=== PATIENT | male | born 1955 | race Caucasian/White ===

== ENCOUNTER → 2019-08-22 | Outpatient (REF) | payer MEDICARE ==
[2019-08-23 17:16] LABS: CREATININE,RANDOM URINE 59.3 MG/DL; MAGNESIUM URINE RANDOM 4.8 MG/DL
== END ==
LOC: M LAB REF 16:28
PROVIDERS: ATTEND Nurse Practitioner Family
DX: E83.42 Hypomagnesemia (principal); N18.2 Chronic kidney disease, stage 2 (mild)

== ENCOUNTER 2020-06-14 21:48 | Emergency (ER) | payer MEDICARE ==
[~2020-06-14] VITALS: Ht 180.3 cm; Wt 150.0 kg
[2020-06-14] MEDS ORDERED: CALC1CAP31 (22:15)
[2020-06-14] MEDS ORDERED: SPIR50TA4 (22:15)
[2020-06-14] MEDS ORDERED: ZYLO300T6 (22:15)
[2020-06-14] MEDS ORDERED: THEO400T4 (22:15)
[2020-06-14] MEDS ORDERED: NOVO70VL (22:15)
[2020-06-14] MEDS ORDERED: VITA1CAP25 (22:15)
[2020-06-14] MEDS ORDERED: GABA-282 (22:15)
[2020-06-14] MEDS ORDERED: METF10004 (22:15)
[2020-06-14] MEDS ORDERED: BISO5TAB14 (22:15)
[2020-06-14] MEDS ORDERED: ASPI81CH33 PO (22:15)
[2020-06-14] MEDS ORDERED: ESOM40CA35 (22:15)
[2020-06-14] MEDS ORDERED: PARO20TA3 (22:15)
[2020-06-14] MEDS ORDERED: GLYB5TAB6 (22:15)
[2020-06-14] MEDS ORDERED: SIMV40TA20 (22:15)
[2020-06-14] MEDS ORDERED: FURO80TA2 (22:15)
[2020-06-14] MEDS ORDERED: KETOROLAC 30 MG/ML 1ML VIAL IV ONE (22:25)
[2020-06-14 22:49] LABS: HEMATOCRIT 38.9 % (42.0-52.0); MEAN CORPUSCULAR HEMOGLOBIN 30.8 pg (27.0-33.0); MEAN CORPUSCULAR HGB CONC 33.4 g/dl (32.0-36.5); MEAN CORPUSCULAR VOLUME 92.2 fl (80.0-96.0); PLATELET COUNT, AUTOMATED 191 10^3/uL (150-450); RED BLOOD COUNT 4.22 10^6/uL (4.30-6.10); WHITE BLOOD COUNT 6.6 10^3/uL (4.0-10.0)
[2020-06-14 23:20] LABS: ALBUMIN 2.7 GM/DL (3.2-5.2); BILIRUBIN,TOTAL 0.8 MG/DL (0.2-1.0); CALCIUM LEVEL 8.3 MG/DL (8.8-10.2); CREATININE FOR GFR 4.96 MG/DL (0.70-1.30); GLOMERULAR FILTRATION RATE 12.6 (>49); POTASSIUM SERUM 3.8 MEQ/L (3.5-5.1)
--- NOTE | 2020-06-15 00:16 | REPVR ---
PROCEDURE INFORMATION: Exam: MR Lumbar Spine Without Contrast Exam date and time: 06/14/2020 10:22 PM Age: 64 years old Clinical indication: Low back pain; Additional info: Lbp with urine and stool incontinence TECHNIQUE: Imaging protocol: Multiplanar magnetic resonance images of the lumbar spine without intravenous contrast. COMPARISON: No relevant prior studies available. FINDINGS: Limitations: Limited by patient's body habitus. Vertebrae: Normal lumbar lordosis and vertebral alignments. Moderate superior L3 endplate chronic appearing Schmorl's node cavity. Tiny inferior L4 endplate Schmorl's node cavity. Spinal cord: Normal signal. No cord compression. L1-L2: Mild disc bulging and foraminal stenosis. L2-L3: Facet arthropathy, ligamentum flavum thickening, and disc bulging causes mild spinal and moderate foraminal stenosis. L3-L4: Bulky facet arthropathy, ligamentum flavum thickening, and diffuse disc bulging causes severe spinal and mild moderate foraminal stenosis. L4-L5: Mild moderate facet arthropathy, ligamentum flavum thickening, disc bulge and small central disc protrusion causes mild moderate spinal, moderate subarticular and foraminal stenosis. Synovial cyst arising from the right L4-L5 facet, and lies posterior to the joint. L5-S1: No significant disc disease. No significant spinal canal stenosis. No neural foraminal stenosis. Sacrum/coccyx: Left greater than right sacroiliac arthrosis. Soft tissues: Unremarkable. IMPRESSION: Degenerative disc and joint disease greatest at L3-L4 with severe spinal and subarticular stenosis. Electronically signed by: Barron Fernandez On 06/15/2020 00:16:14 AM
[2020-06-15 01:57] VITALS: BP 116/58
== END 2020-06-15 01:59 | disposition short-term general hospital (02) ==
LOC: EDBD 21:48 → M ED 21:48
DX: G83.4 Cauda equina syndrome (principal); E11.9 Type 2 diabetes mellitus without complications; M51.36 Other intervertebral disc degeneration, lumbar region; Z88.0 Allergy status to penicillin; Z79.899 Other long term (current) drug therapy
CPT/HCPCS: 72148; 80053; 85027; 96374; 99285; J1885

== ENCOUNTER → 2020-08-05 | Outpatient (REF) | payer MEDICARE ==
[~2020-08-05] MED LIST: ASPI81CH33 PO; BISO5TAB14; CALC1CAP31; ESOM40CA35; FURO80TA2; GABA-282; GLYB5TAB6; METF10004; NOVO70VL; PARO20TA3; SIMV40TA20; SPIR50TA4; THEO400T4; VITA1CAP25; ZYLO300T6
[2020-08-05 15:59] LABS: HEMATOCRIT 41.8 % (42.0-52.0); HEMOGLOBIN 13.4 g/dl (13.5-17.5); MEAN CORPUSCULAR HEMOGLOBIN 30.9 pg (27.0-33.0); MEAN CORPUSCULAR HGB CONC 32.1 g/dl (32.0-36.5); MEAN CORPUSCULAR VOLUME 96.5 fl (80.0-96.0); PLATELET COUNT, AUTOMATED 223 10^3/uL (150-450); RED BLOOD COUNT 4.33 10^6/uL (4.30-6.10); WHITE BLOOD COUNT 9.2 10^3/uL (4.0-10.0)
[2020-08-05 16:11] LABS: CHOLESTEROL RISK RATIO 2.943 (<5); MAGNESIUM LEVEL 1.4 MG/DL (1.8-2.4); PERCENT SATURATION 22.3 % (19.7-50.0); THEOPHYLLINE LEVEL 8.3 UG/ML (10.0-20.0); URIC ACID 5.7 MG/DL (3.5-7.2)
[2020-08-05 16:14] LABS: TOTAL 25(OH) VITAMIN D 50.5 NG/ML (30.0-100.0)
[2020-08-05 16:15] LABS: FOLATE 19.9 NG/ML (>5.4)
[2020-08-05 16:35] LABS: HEMOGLOBIN A1c 7.5 %
== END ==
LOC: M SFHCCLAY 10:34
PROVIDERS: ATTEND Nurse Practitioner Family
DX: E11.8 Type 2 diabetes mellitus with unspecified complications (principal); E78.5 Hyperlipidemia, unspecified; E55.9 Vitamin D deficiency, unspecified; M10.9 Gout, unspecified; I10 Essential (primary) hypertension; J44.9 Chronic obstructive pulmonary disease, unspecified; M79.605 Pain in left leg; D64.9 Anemia, unspecified
CPT/HCPCS: 80061; 80198; 82306; 82728; 82746; 83036; 83550; 83735; 84550; 85027; G0463

== ENCOUNTER → 2020-08-27 | Outpatient (CLI) | payer MEDICARE ==
--- NOTE | 2020-08-29 00:25 | ECWPNPC ---
PATIENT NAME: ORESTES MCLAIN : 1955 GENDER: MALE VISIT DATE: 08/27/2020 DISCHARGE DATE: 08/27/20 1115 VISIT LOCKED DATE TIME: PHYSICIAN: SURESH LARKIN PHYSICIAN PAGER NO: ACTIVE RESOURCE: SURESH LARKIN REASON FOR APPOINTMENT 1. LOW BACK PAIN,LEG WEAKNESS,NUMBNESS OF HIPS HISTORY OF PRESENT ILLNESS DEPRESSION SCREENING: PHQ-2 (2015 EDITION) LITTLE INTEREST OR PLEASURE IN DOING THINGS?NOT AT ALL FEELING DOWN, DEPRESSED, OR HOPELESS?NOT AT ALL TOTAL SCORE0 GENERAL: 65-YEAR-OLD GENTLEMAN BEING REFERRED BY JENIFFER PRESCOTT MOTOR AND GENERATOR ASSEMBLER, PRIMARY CARE AT [facility] TO EVALUATE LOW BACK PAIN AND BILATERAL LEG PAIN STATUS POST FALL INJURY IN MAY. STATES HE FELL TWICE IN MAY. STATES FIRST FALL WAS BECAUSE LEGS OF CHAIR GAVE OUT AND THE SECOND FALL HE TRIPPED SIDEWALK. HE WAS EVALUATED AT THE EMERGENCY ROOM IN JUNE 2020 DUE TO INCREASE IN LOW BACK PAIN AND LEG PAIN. WAS SEEN ON JUNE 14 AND AN MRI OF THE LUMBAR SPINE WAS ORDERED. PATIENT WAS SENT TO [facility] TO CONSIDER SURGICAL INTERVENTION. [facility] DID NOT FEEL SURGICAL SOLUTION WAS NECESSARY AND HE ATTENDED [facility] X4 WEEKS AND WAS RELEASED MID-JULY 2020. DOING QUITE WELL SINCE ACUTE REHAB. HE IS ABLE TO WALK WITH ASSIST OF A WALKER. HAS INTERMITTENT PAIN IN HIS POSTERIOR THIGHS. HAVING SOME DISCOMFORT OVER THE LS AXIS. REPORTING NO IMPAIRMENT WITH SLEEP DUE TO PAIN. OVERALL DOING QUITE WELL. DENIES BOWEL OR BLADDER INCONTINENCE. DENIES SADDLE PARESTHESIAS. - - -. FALL RISK SCREENING: SCREENING 1-2 FALLS THIS YEAR THE CANE FALLS FROM UNDERNEATH HIM, WENT TO ER THEY DID HIP XRAY/ DID MRI. PAIN SCREENING: PATIENT HAS A COMPLAINT OF ACUTE OR CHRONIC PAIN :YES LOCATION OF PAIN:LOW BACK INTENSITY OF PAIN (SCALE OF 1 TO 10):2 WHAT DOES YOUR PAIN FEEL LIKE:OTHER DULL PAIN DURATION:CONTINOUS, CONSTANT PAIN IS INCREASED BY:ACTIVITIES PAIN IS DECREASED BY:OTHERS RESTING AND HEAT AND ICE NURSING NOTE: - - -. PAIN CENTER INTAKE QUESTIONS: DO YOU HAVE A HISTORY OF MRSA? :NO DO YOU TAKE A BLOOD THINNERS? :NO ASPIRIN 81 MG DO YOU HAVE ANY BLEEDING DISORDERS? :NO ANY NEW NUMBNESS OR WEAKNESS IN YOUR LEGS OR ARMS? :YES PAIN BACK OF LEG BOTH LEGS MOSTLY ON THE LEFT ANY PACEMAKER,DEFIBRILLATOR, OR DORSAL COLUMN STIMULATOR? :NO DO YOU HAVE ANY RASHES OR OPEN SORES? :NO ARE YOU ALLERGIC TO IV DYE? :NO ARE YOU DIABETIC? :YES ANY NEW PROBLEMS WITH YOUR MEDICATIONS? :NO HAVE YOU RECEIVED A VACCINE IN THE PAST 30 DAYS? :NO PFIZER 1ST COVID 05/13/2020 2ND COVID 06/03/2020 DO YOU PLAN TO RECEIVE A VACCINE IN THE NEXT 21 DAYS? :NO DO YOU NEED ANY PRESCRIPTION? :NO DO YOU TAKE ANY IMMUNOSUPPRESSIVE MEDICATIONS? :NO IS THERE A CHANCE YOU COULD BE ? :NO ARE YOU BREAST FEEDING? :NO CURRENT MEDICATIONS TAKING FUROSEMIDE 40 MG TABLET 2 TABLET ORALLY ONCE A DAY TAKING DICLOFENAC SODIUM 75 MG TABLET DELAYED RELEASE 1 TABLET ORALLY TWICE A DAY TAKING HUMALOG KWIKPEN 100 UNIT/ML SOLUTION PEN-INJECTOR DIRECTED SUBCUTANEOUS PER SLIDING SCALE TAKING ATORVASTATIN CALCIUM 20 MG TABLET 1 TABLET ORALLY ONCE A DAY TAKING TAMSULOSIN HCL 0.4 MG CAPSULE 1 CAPSULE ORALLY BEFORE BEDTIME TAKING VITAMIN D3 125 MCG (5000 UT) TABLET CHEWABLE 1 TABLET ORALLY EVERY OTHER WEEK TAKING GABAPENTIN 300 MG CAPSULE 1 CAPSULE ORALLY THREE TIMES A DAY PRN TAKING AMLODIPINE BESYLATE 5 MG TABLET 1 TABLET ORALLY ONCE A DAY, HOLD FOR BP <100 AND PULSE <60 TAKING MAGNESIUM 500 MG TABLET 1 TABLET ORALLY TWICE A DAY TAKING THEOPHYLLINE ER 400 MG TABLET EXTENDED RELEASE 24 HOUR 1 TABLET ORALLY ONCE A DAY TAKING MENS ONE DAILY 1 TABLET ORALLY ONCE A DAY TAKING ASPIRIN 81 MG TABLET CHEWABLE 1 TABLET ORALLY ONCE A DAY TAKING CALCITRIOL 0.25 MCG CAPSULE 1 CAPSULE ORALLY ONCE A DAY TAKING PAROXETINE HCL 20 MG TABLET 1 TABLET IN THE MORNING ORALLY ONCE A DAY TAKING ESOMEPRAZOLE MAGNESIUM 40 MG CAPSULE DELAYED RELEASE 1 CAPSULE ORALLY ONCE DAILY NEEDED, NOTES: TAKES EVERY OTHER DAY TAKING SPIRONOLACTONE 50 MG TABLET 1 TABLET ORALLY BID TAKING NEBULIZER 493.90, 496 N/A 1 NEBULIZER MACHINE DIRECTED TAKING DUONEB 0.5-2.5 (3) MG/3ML SOLUTION USE ONE VIAL VIA NEBULIZER TWO TIMES A DAY NEEDED INHALATION BID TAKING TYLENOL 325 MG TABLET 1 TABLET NEEDED ORALLY PRN TAKING AddThisTOUCH VERIO W/DEVICE KIT DIRECTED ONE TOUCH ULTRA E 11.9 TAKING AddThisTOUCH LANCETS - MISCELLANEOUS DIRECTED E 11.9 BID TAKING BLOOD GLUCOSE TEST - STRIP 1 STRIP ONE TOUCH VERIO BID DX E11.9 TAKING WALKER - MISCELLANEOUS DIRECTED WALKER WITH SEAT AND WHEELS DIRECTED I50.32 WT 330 TAKING ROLLER WALKER - MISCELLANEOUS DIRECTED HEAVY DUTY ROLLATOR DIRECTED-M79.604,M79.605::330#, 72" TAKING ALLOPURINOL 100 MG TABLET 1 TABLET ORALLY ONCE A DAY TAKING BISOPROLOL FUMARATE 5 MG TABLET TAKE ONE-HALF TABLET BY MOUTH ONCE A DAY ORALLY ONCE A DAY NOT-TAKING ONETOUCH VERIO - STRIP 1 STRIP IN VITRO E11.8 UP TO THREE TIMES DX E11.8 NOT-TAKING LASIX 40 MG TABLET 2 TAB ORALLY ONCE A DAY NOT-TAKING GLYBURIDE 5 MG TABLET 2 TABLETS ORALLY TWICE A DAY NOT-TAKING MAGNESIUM-OXIDE 400 (241.3 MG) MG TABLET TAKE THREE TABLETS BY MOUTH TWICE A DAY ORALLY TWICE DAILY MEDICATION LIST REVIEWED AND RECONCILED WITH THE PATIENT PAST MEDICAL HISTORY HYPERTENSION DIABETES COPD/CHRONIC BRONCHITIS CHRONIC LOW BACK PAIN ELEVATED CHOLESTEROL ASTHMA DYSSOMNIA (INTRINSIC SLEEP DISORDER, DONITA) ANXIETY RENAL FAILURE 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 LOW 311 GOUT LOW VIT D LBBB UMBILICAL HERNIA ATRIAL FIBRILLATION CHRONIC DIASTOLIC CONGESTIVE HEART FAILURE AND HYPERTENSIVE HEART DISEASE WITH HEART FAILURE ALLERGIES PENICILLIN G SODIUM: HIVES - ALLERGY SURGICAL HISTORY HERNIA REPAIR, UMBILICAL 09/23/14 FAMILY HISTORY FATHER: 49 YRS, DIAGNOSED WITH OTHER MALIGNANT NEOPLASM OF UNSPECIFIED SITE MOTHER: 78 YRS, HYPERTENSION, DIABETES SIBLINGS: ALIVE 1 BROTHER(S) , 1 SISTER(S) - HEALTHY. SIBS HAVE HTN, NO DM. MOTHER AFTER SURGERY FOR A BOWEL OBSTRUCTION. SOCIAL HISTORY GENERAL: TOBACCO USE ARE YOU A:NONSMOKER SMOKING CESSATION INFORMATION GIVEN04/30/2015 VAPORNO E-CIGARETTENO LATEX QUESTIONNAIRE LATEX ALLERGY : HAVE YOU EVER DEVELOPED ANY TYPE OF REACTION AFTER HANDLING LATEX PRODUCTS SUCH RUBBER GLOVES, CONDOMS, DIAPHRAGMS, BALLOONS, SOCKS, OR UNDERWEAR?NO LATEX ALLERGY : HAVE YOU EVER DEVELOPED ANY TYPE OF REACTION DURING OR AFTER DENTAL APPOINTMENT, VAGINAL/RECTAL EXAMINATION, SURGICAL PROCEDURE, OR ANY OTHER EXPOSURE?NO LATEX RISK : HAVE YOU EVER HAD ANY DIFFICULTY BREATHING OR HIVES AFTER EATING OR HANDLING ANY FRUITS, OR VEGETABLES; SUCH KIWI, BANANAS, STONE FRUITS, OR CHESTNUTSNO LATEX RISK : DO YOU HAVE A PREVIOUS PERSONAL HISTORY OF MORE THAN NINE SURGERIES, SPINA BIFIDA, OR REPEATED CATHERIZATIONS? NO LATEX RISK : ARE YOU FREQUENTLY EXPOSED TO LATEX PRODUCTS IN YOUR OCCUPATION?NO DATE ASKED : 08/27/2020 ALCOHOL USE: NO. LUNG CANCER SCREENING SMOKING STATUS:NON SMOKER ALCOHOL SCREENING POINTS: 0, INTERPRETATION: NEGATIVE. RECREATIONAL DRUG USE DENIES. CAFFEINE NONE. SEXUAL HX HAD SEX IN THE LAST 12 MONTHS (VAGINAL, ORAL, OR ANAL)?NO HIV / HEP-C SCREENING HIV TEST OFFERED TO PATIENT:YES DATE OFFERED:06/28/2016 TEST ACCEPTED:NO HEP-C TEST OFFERED TO PATIENT:YES DATE OFFERED:06/28/2016 REASON:PATIENT DECLINED TEST ACCEPTED:NO REASON:PATIENT DECLINED SYNAGOGUE SYNAGOGUE NO SCIENTOLOGIST BELIEFS THAT WOULD IMPACT HEALTH CARE. LANGUAGE LANGUAGES SPOKEN:[place] LEARNING BARRIERS / SPECIAL NEEDS CHANGE FROM LAST VISIT?NO BARRIERS TO LEARNING?NO HEARING IMPAIRED?NO VISION IMPAIRED?YES :CORRECTIVE LENSES COGNITIVELY IMPAIRED?NO READINESS TO LEARN?YES LEARNING PREFERENCES?NO LEARNING CAPABILITIES PRESENT?YES EMOTIONAL BARRIERS?NO SPECIAL DEVICES?YES :CANE, WALKER, WHEELCHAIR TOOL AND DIE ENGINEER NEEDED?NO DOMESTIC VIOLENCE NONE. OCCUPATION: RETIRED. DIET: NO. EXERCISE: WALKS. FROM 0-10, WHAT LEVEL IS YOUR PAIN TODAY? 0/10 HOSPITALIZATION/MAJOR DIAGNOSTIC PROCEDURE [facility]-LEG SWELLING, DIFFICULTY AMBULATING 06/06/20 [facility], [place] ER-LEG SWELLING, DIFFICULTY AMBULATING 06/14/20 TRANSFERRED TO [facility] 06/14/20 REVIEW OF SYSTEMS CONSTITUTIONAL: ANY RECENT FEVER NO . CHILLS NO . WEIGHT CHANGE OF UNKNOWN REASONS NO . GASTROENTEROLOGY: NEW UNEXPLAINABLE CHANGES IN BOWEL CONTROL NO . CONSTIPATION NO . GENITOURINARY: ANY NEW CHANGE IN BLADDER CONTROL? NO . NEUROLOGY: NEW ONSET DIZZINESS OR NEUROLOGICAL CHANGES NOT MENTIONED NO . NEW NUMBNESS OR PAIN PATTERNS NOT MENTIONED AND PERTINENT TO TODAY'S VISIT NO . CARDIOLOGY: NEW CHEST PRESSURE NO . PATIENT DENIES NO . RESPIRATORY: UNEXPLAINABLE COUGH NO . NEW SHORTNESS OF BREATH NO . VITAL SIGNS WT 320.0 LBS, HT 72 IN, BMI 43.40 INDEX, BP 138/63 MM HG, HR 52 /MIN, RR 18 /MIN, TEMP 98.6 F, OXYGEN SAT % 98%, BLOOD GLUCOSE LEVEL 257 THIS AM, SAFE IN ENV? (Y/N) YES, NA INITIALS AW 1028T.SHELBY ARAYA. EXAMINATION GENERAL EXAMINATION: GENERALNO ACUTE DISTRESS, WELL NOURISHED AND HYDRATED. PSYCHAPPROPRIATE MOOD AND AFFECT . NECK:NO LYMPHADENOPATHY, SUPPLE. LUNGS:CLEAR TO AUSCULTATION BILATERALLY, NO WHEEZES, RHONCHI, RALES. HEART:NO MURMURS, REGULAR RATE AND RHYTHM. MUSCULOSKELETAL: MUSCLE STRENGTH TESTING 5/5 BILATERAL LOWER EXTREMITIES. LUMBAR:NONTENDER WITH PALPATION. ASSESSMENTS DORSALGIA, UNSPECIFIED - M54.9 (PRIMARY) TREATMENT DORSALGIA, UNSPECIFIED NOTES: PATIENT IS RECOVERING EXPECTED FROM AN ACUTE FALL INJURY IN MAY 2020. I WOULD RECOMMEND PHYSICAL THERAPY EVALUATION FOR HOME EXERCISE AND REHAB PROGRAM. PATIENT WILL SEE PRIMARY CARE PROVIDER NEXT WEEK AND DUE TO ACUTE NATURE OF HIS PAIN I WOULD LEAVE IT TO THEIR DISCRETION IF PHYSICAL THERAPY IS NECESSARY. PATIENT WILL CALL US IN 2 MONTHS TIME IF HE IS HAVING PAIN ISSUES THAT ARE UNBEARABLE THAT HE WOULD LIKE TO HAVE ADDRESSED IN A FOLLOW-UP VISIT WITH US AT THE PAIN CENTER. PROCEDURE CODES FA211 ESTABILISHED PATIENT [facility] CHARGE DISPOSITION & COMMUNICATION FOLLOW UP PATIENT WILL CALL IF NECESSARY (REASON: LOW BACK PAIN STATUS POST FALL INJURY MAY 2020/DOING WELL AFTER ACUTE REHAB STAY AT [facility] IN [place]) ELECTRONICALLY SIGNED BY CHRISTIAN SANCHEZ ON 08/28/2020 AT 01:08 PM EDT DISCLAIMER : THIS IS A VISIT SUMMARY EXTRACTED FROM THE [employer] CHART. IT IS NOT A COPY OF THE [employer] PROGRESS NOTE. TYRONE
== END ==
LOC: M PAIN 10:15
PROVIDERS: ATTEND Nurse Practitioner Family
DX: M54.9 Dorsalgia, unspecified (principal); E11.9 Type 2 diabetes mellitus without complications; J44.9 Chronic obstructive pulmonary disease, unspecified; E55.9 Vitamin D deficiency, unspecified; Z86.59 Personal history of other mental and behavioral disorders; Z88.0 Allergy status to penicillin; E66.01 Morbid (severe) obesity due to excess calories; Z68.41 Body mass index [BMI] 40.0-44.9, adult; Z79.4 Long term (current) use of insulin; Z79.82 Long term (current) use of aspirin; Z79.899 Other long term (current) drug therapy

== ENCOUNTER → 2020-09-01 | Outpatient (CLI) | payer MEDICARE ==
--- NOTE | 2020-09-01 11:39 | REP ---
INDICATION: ACUTE KIDNEY FAILURE RETENTION URINE COMPARISON: None TECHNIQUE: Real time mejia scale ultrasound examination using curved array transducer. FINDINGS: Kidneys are normal in reniform shape with increased central sinus fat suggesting chronic age-related changes. The right kidney measures 11.2 x 5.0 x 5.8 cm without hydronephrosis, nephrolithiasis, cystic or renal mass lesion. Left kidney measures 11.8 x 6.0 x 6.3 cm and includes 7 mm midpole cyst and 1.8 cm lower pole cyst. IMPRESSION: 1. Age-related medical renal disease. Small left renal cysts. 2. No hydronephrosis. <Electronically signed by Heath Cuellar > 09/01/20 [id number]
--- NOTE | 2020-09-01 11:40 | REP ---
INDICATION: ACUTE KIDNEY FAILURE RETENTION URINE COMPARISON: None TECHNIQUE: Real time B-mode ultrasound examination using curved array transducer. FINDINGS: Bladder is normal in appearance without wall thickening or mass lesion. Bilateral ureteral jets are identified. Small amount of layering debris is identified and nonspecific. Prevoid bladder measures 15.7 x 9.7 x 8.3 cm (656 cc). Postvoid bladder was completely emptied. Postvoid residual: 0% IMPRESSION: 1. Normal bladder ultrasound. <Electronically signed by Heath Cuellar > 09/01/20 [id number]
== END ==
LOC: M RAD 10:36
PROVIDERS: ATTEND Nurse Practitioner Family
DX: N17.9 Acute kidney failure, unspecified (principal); R33.9 Retention of urine, unspecified

== ENCOUNTER → 2020-09-16 | Outpatient (REF) | payer MEDICARE | LOC: M LAB REF 17:41 | PROVIDERS: ATTEND Nurse Practitioner Family | DX: E83.42 Hypomagnesemia (principal) ==

== ENCOUNTER → 2020-11-24 | Outpatient (REF) | payer MEDICARE | LOC: M LAB REF 13:18 | PROVIDERS: ATTEND Nurse Practitioner Family | DX: E83.42 Hypomagnesemia (principal) ==

== ENCOUNTER → 2021-02-25 | Outpatient (REF) | payer MEDICARE | LOC: M LAB REF 17:03 | PROVIDERS: ATTEND Nurse Practitioner Family | DX: E83.42 Hypomagnesemia (principal) ==

== ENCOUNTER → 2021-07-01 | Outpatient (REF) | payer MEDICARE ==
[2021-07-01 18:19] LABS: APPEARANCE, URINE HAZY (CLEAR); BACTERIA, URINE AUTO NEGATIVE (NEGATIVE); BILIRUBIN, URINE AUTO NEGATIVE (NEGATIVE); BLOOD, URINE BLOOD NEGATIVE (NEGATIVE); COLOR, URINE YELLOW (YELLOW); GLUCOSE, URINE (UA) AUTO 3+ mg/dL (NEGATIVE); KETONE, URINE AUTO NEGATIVE (NEGATIVE); LEUKOCYTE ESTERASE, URINE AUTO NEGATIVE (NEGATIVE); NITRITE, URINE AUTO NEGATIVE (NEGATIVE); PROTEIN, URINE AUTO NEGATIVE (NEGATIVE); RBC, URINE AUTO 0 /HPF (0-3); SPECIFIC GRAVITY URINE AUTO 1.003 (1.002-1.035); SQUAMOUS EPITHELIAL CELL UR AU 0 /HPF (0-6); UROBILINOGEN, URINE AUTO 0.2 mg/dL (0.0-2.0); WBC, URINE AUTO 0 /HPF (0-3)
== END ==
LOC: M SMT 16:46
PROVIDERS: ATTEND Nurse Practitioner Women's Health
DX: N39.0 Urinary tract infection, site not specified (principal)

== ENCOUNTER 2022-08-31 11:06 | Emergency (ER) | payer MEDICARE ==
[~2022-08-31] VITALS: Ht 182.9 cm; Wt 139.4 kg
[~2022-08-31 11:06] MED LIST changes: +ACET1TAB55 PO; +ALLO100T PO; +ATOR40TA75 PO; -CALC1CAP31; +CALC1CAP31 PO; +CIPR-249 PO; +CIPR500S PO; -ESOM40CA35; +ESOM40CA35 PO; +FIAS100I2 SC; +FLOM0.4C39 PO; +FURO40TA2 PO; -GABA-282; +GABA-282 PO; -GLYB5TAB6; +GLYB5TAB6 PO; +METR-265 PO; +ONETAB PO; -PARO20TA3; +PARO20TA3 PO; +POTA-151 PO; -SPIR50TA4; +SPIR50TA4 PO; +THEO1CAP2 PO; -THEO400T4; +THEO400T4 PO; +TRES100I SC; -VITA1CAP25; +VITA1CAP25 PO
[2022-08-31] MEDS ORDERED: THEO400T4 PO (11:28)
[2022-08-31 12:13] LABS: BASO # 0.1 10^3/uL (0.0-0.2); BASO % 0.7 % (0.0-1.0); EOS # 0.1 10^3/uL (0.0-0.5); EOS % 1.1 % (0.0-3.0); HEMATOCRIT 42.5 % (42.0-52.0); LYMPH # 1.3 10^3/uL (1.5-5.0); LYMPH % 11.9 % (24.0-44.0); MEAN CORPUSCULAR HEMOGLOBIN 29.5 pg (27.0-33.0); MEAN CORPUSCULAR HGB CONC 32.9 g/dl (32.0-36.5); MEAN CORPUSCULAR VOLUME 89.5 fl (80.0-96.0); MONO # 0.6 10^3/uL (0.0-0.8); MONO % 5.4 % (2.0-8.0); NEUTROPHILS # 8.6 10^3/uL (1.5-8.5); NEUTROPHILS % 80.3 % (36.0-66.0); PLATELET COUNT, AUTOMATED 224 10^3/uL (150-450); RED BLOOD COUNT 4.75 10^6/uL (4.30-6.10); WHITE BLOOD COUNT 10.7 10^3/uL (4.0-10.0)
[2022-08-31 12:18] LABS: VENOUS BASE EXCESS 1.5 (-2.0-2.0); VENOUS HCO3 26.1 MMOL/L (23.0-27.0); VENOUS O2 SATURATION 90.4 % (60.0-80.0); VENOUS PARTIAL PRESSURE O2 58.2 mmHg (30.0-50.0); VENOUS PH 7.422 UNITS (7.330-7.430); VENOUS STANDARD HCO3 25.7 MMOL/L; VENOUS TOTAL CO2 27.4 MMOL/L (24.0-28.0)
[2022-08-31 12:28] LABS: ALBUMIN 3.9 G/DL (3.2-5.2); ALKALINE PHOSPHATASE 115 U/L (46-116); ALT/SGPT 21 U/L (7.0-40); AST/SGOT 20 U/L (<34); BILIRUBIN,DIRECT 0.2 MG/DL (<0.4); BILIRUBIN,TOTAL 0.7 MG/DL (0.3-1.2); BLOOD UREA NITROGEN 14 MG/DL (9-23); CALCIUM LEVEL 9.3 MG/DL (8.3-10.6); CARBON DIOXIDE LEVEL 27 MMOL/L (20-31); CHLORIDE LEVEL 105 MMOL/L (98-107); CREATININE FOR GFR 0.99 MG/DL (0.70-1.30); GLOMERULAR FILTRATION RATE > 60.0 (>49); GLUCOSE, FASTING 180 MG/DL (74-106); POTASSIUM SERUM 3.5 MMOL/L (3.5-5.1); SODIUM LEVEL 139 MMOL/L (136-145); TOTAL PROTEIN 6.9 G/DL (5.7-8.2)
[2022-08-31 12:30] LABS: THYROID STIMULATING HORMONE 1.898 uIU/ML (0.55-4.78)
[2022-08-31] MEDS ORDERED: ISOVUE-370 76% 100ML VIAL As Ordered ONE (13:09)
[2022-08-31 15:50] VITALS: O2SAT 97
[2022-08-31 16:07] VITALS: BP 154/90; TEMP 97.4; O2SAT 97
== END 2022-08-31 16:15 | disposition home or self-care (01) ==
LOC: M ED 11:06
DX: R69 Illness, unspecified (principal); R06.02 Shortness of breath; E11.9 Type 2 diabetes mellitus without complications; K21.9 Gastro-esophageal reflux disease without esophagitis; N40.1 Benign prostatic hyperplasia with lower urinary tract symptoms; I44.0 Atrioventricular block, first degree; I44.4 Left anterior fascicular block; Z88.0 Allergy status to penicillin; Z79.82 Long term (current) use of aspirin; Z79.4 Long term (current) use of insulin; Z79.899 Other long term (current) drug therapy
CPT/HCPCS: 36415; 71045; 71275; 80048; 80076; 80198; 82803; 83605; 83880; 84443; 85025; 87040; 87077; 87186; 87486; 87581; 87633; 87798; 93005; 93041; 94760; 99285; Q9967

== ENCOUNTER → 2022-09-03 | Outpatient (REF) | payer MEDICARE | LOC: M LABDRAWC 16:55 | PROVIDERS: ATTEND Physician Assistant Medical | DX: R19.7 Diarrhea, unspecified (principal) ==

== ENCOUNTER → 2023-02-03 | Outpatient (CLI) | payer MEDICARE | LOC: M CLY 11:53 | PROVIDERS: ATTEND Nurse Practitioner Family | DX: R06.2 Wheezing (principal); J84.10 Pulmonary fibrosis, unspecified ==

== ENCOUNTER → 2023-02-03 | Outpatient (REF) | payer MEDICARE | LOC: M SFHCCLAY 11:41 | PROVIDERS: ATTEND Nurse Practitioner Family | DX: R05.1 Acute cough (principal) ==

== ENCOUNTER → 2023-05-10 | Outpatient (REF) | payer OTHER ==
[2023-05-10 17:58] LABS: BASO # 0.1 10^3/uL (0.0-0.2); BASO % 0.6 % (0.0-1.0); EOS # 0.2 10^3/uL (0.0-0.5); EOS % 1.6 % (0.0-3.0); HEMATOCRIT 49.1 % (42.0-52.0); HEMOGLOBIN 16.5 g/dl (13.5-17.5); LYMPH # 1.5 10^3/uL (1.5-5.0); MEAN CORPUSCULAR HEMOGLOBIN 30.4 pg (27.0-33.0); MEAN CORPUSCULAR HGB CONC 33.6 g/dl (32.0-36.5); MEAN CORPUSCULAR VOLUME 90.6 fl (80.0-96.0); MONO % 7.5 % (2.0-8.0); NEUTROPHILS # 9.9 10^3/uL (1.5-8.5); NEUTROPHILS % 77.8 % (36.0-66.0); PLATELET COUNT, AUTOMATED 250 10^3/uL (150-450); RED BLOOD COUNT 5.42 10^6/uL (4.30-6.10); WHITE BLOOD COUNT 12.8 10^3/uL (4.0-10.0)
[2023-05-10 18:16] LABS: HEMOGLOBIN A1c 7.4 % (4.0-6.0)
[2023-05-10 18:26] LABS: URIC ACID 6.6 MG/DL (3.7-9.2)
[2023-05-10 18:30] LABS: ALBUMIN 4.2 G/DL (3.2-5.2); BILIRUBIN,TOTAL 0.6 MG/DL (0.3-1.2); CALCIUM LEVEL 9.9 MG/DL (8.3-10.6); CREATININE FOR GFR 1.42 MG/DL (0.70-1.30); GLOMERULAR FILTRATION RATE 52.9 (>49); MAGNESIUM LEVEL 1.8 MG/DL (1.8-2.4); POTASSIUM SERUM 4.5 MMOL/L (3.5-5.1); PSA SCREENING 0.65 NG/ML (< 4.00); TOTAL PROTEIN 7.6 G/DL (5.7-8.2)
== END ==
LOC: M SFHCCLAY 10:46
PROVIDERS: ATTEND Nurse Practitioner Family
DX: L02.91 Cutaneous abscess, unspecified (principal); E83.42 Hypomagnesemia; E11.9 Type 2 diabetes mellitus without complications; M10.9 Gout, unspecified; Z12.5 Encounter for screening for malignant neoplasm of prostate
CPT/HCPCS: 80053; 83036; 83735; 84550; 85025; G0103

== ENCOUNTER → 2023-08-24 | Outpatient (REF) | payer OTHER ==
[2023-08-24 14:43] LABS: APPEARANCE, URINE HAZY (CLEAR); BACTERIA, URINE AUTO NEGATIVE (NEGATIVE); BILIRUBIN, URINE AUTO NEGATIVE (NEGATIVE); BLOOD, URINE BLOOD 3+ (NEGATIVE); COLOR, URINE YELLOW (YELLOW); GLUCOSE, URINE (UA) AUTO NEGATIVE (NEGATIVE); KETONE, URINE AUTO NEGATIVE (NEGATIVE); LEUKOCYTE ESTERASE, URINE AUTO 2+ (NEGATIVE); NITRITE, URINE AUTO NEGATIVE (NEGATIVE); PROTEIN, URINE AUTO 1+ mg/dL (NEGATIVE); RBC, URINE AUTO 154 /HPF (0-3); SPECIFIC GRAVITY URINE AUTO 1.004 (1.002-1.035); SQUAMOUS EPITHELIAL CELL UR AU 1 /HPF (0-6); UROBILINOGEN, URINE AUTO 0.2 mg/dL (0.0-2.0); WBC, URINE AUTO 37 /HPF (0-3)
== END ==
LOC: M SMT 12:58
PROVIDERS: ATTEND Physician Assistant
DX: R30.0 Dysuria (principal)

== ENCOUNTER → 2024-02-14 | Outpatient (REF) | payer OTHER ==
[~2024-02-14] MED LIST changes: +GABA-1172 PO; -GABA-282 PO
[2024-02-14 18:33] LABS: BASO # 0.1 10^3/uL (0.0-0.2); BASO % 0.8 % (0.0-1.0); EOS # 0.2 10^3/uL (0.0-0.5); EOS % 1.5 % (0.0-3.0); HEMATOCRIT 42.7 % (42.0-52.0); HEMOGLOBIN 14.3 g/dl (13.5-17.5); LYMPH # 1.5 10^3/uL (1.5-5.0); LYMPH % 13.9 % (24.0-44.0); MEAN CORPUSCULAR HEMOGLOBIN 31.1 pg (27.0-33.0); MEAN CORPUSCULAR HGB CONC 33.5 g/dl (32.0-36.5); MEAN CORPUSCULAR VOLUME 92.8 fl (80.0-96.0); MONO # 0.7 10^3/uL (0.0-0.8); MONO % 6.1 % (2.0-8.0); NEUTROPHILS # 8.2 10^3/uL (1.5-8.5); NEUTROPHILS % 77.2 % (36.0-66.0); PLATELET COUNT, AUTOMATED 230 10^3/uL (150-450); WHITE BLOOD COUNT 10.6 10^3/uL (4.0-10.0)
[2024-02-14 18:38] LABS: HEMOGLOBIN A1c 7.2 % (4.0-6.0)
[2024-02-14 18:42] LABS: URIC ACID 6.1 MG/DL (3.7-9.2)
[2024-02-14 18:43] LABS: TOTAL IRON BINDING CAPACITY 310 UG/DL (250-425)
[2024-02-14 18:44] LABS: ALBUMIN 3.6 G/DL (3.2-5.2); ALKALINE PHOSPHATASE 101 U/L (40-129); ALT/SGPT 13 U/L (7.0-40); AST/SGOT 16 U/L (<34); BILIRUBIN,TOTAL 0.5 MG/DL (0.3-1.2); BLOOD UREA NITROGEN 23 MG/DL (9-23); CARBON DIOXIDE LEVEL 27 MMOL/L (20-31); CHLORIDE LEVEL 101 MMOL/L (98-107); CHOLESTEROL LEVEL 167 MG/DL (<200); CHOLESTEROL RISK RATIO 3.59 (<5); CREATININE FOR GFR 1.18 MG/DL (0.70-1.30); GLOMERULAR FILTRATION RATE > 60.0 (>49); GLUCOSE, FASTING 184 MG/DL (74-106); HDL CHOLESTEROL 46.5 MG/DL (>40); IRON (FE) 85 UG/DL (65-175); LDL CHOLESTEROL 86.5 MG/DL (<100); NON-HDL-C 120.5 MG/DL; PERCENT SATURATION 27.4 % (19.7-50.0); POTASSIUM SERUM 3.7 MMOL/L (3.5-5.1); SODIUM LEVEL 138 MMOL/L (136-145); TOTAL PROTEIN 7.2 G/DL (5.7-8.2); TRIGLYCERIDES LEVEL 170 MG/DL (<150)
[2024-02-14 18:46] LABS: FERRITIN 149.7 NG/ML (10.5-307.3)
== END ==
LOC: M SFHCCLAY 14:41
PROVIDERS: ATTEND Nurse Practitioner Family
DX: J44.9 Chronic obstructive pulmonary disease, unspecified (principal); E78.5 Hyperlipidemia, unspecified; E11.9 Type 2 diabetes mellitus without complications; M10.9 Gout, unspecified; E83.42 Hypomagnesemia; N40.1 Benign prostatic hyperplasia with lower urinary tract symptoms; K21.9 Gastro-esophageal reflux disease without esophagitis; N18.2 Chronic kidney disease, stage 2 (mild); G47.33 Obstructive sleep apnea (adult) (pediatric)

== ENCOUNTER 2024-03-08 18:09 | Emergency (ER) | payer MEDICARE, OTHER ==
[~2024-03-08] VITALS: Ht 182.9 cm; Wt 145.8 kg
[2024-03-08 18:14] VITALS: BP 180/78; TEMP 98.5; O2SAT 97
[2024-03-08] MEDS: methocarbamoL 500 MG TAB PO ONE (23:46)
[2024-03-08] MEDS: ACETAMINOPHEN 325 MG TAB PO ONE (23:47)
[2024-03-08] MEDS: LIDOCAINE 5% (LIDODERM) PATCH TD ONE (23:48)
[2024-03-09] MEDS ORDERED: LIDO5DIS41 TD (00:15)
[2024-03-09] MEDS ORDERED: METH-1164 PO (00:15)
== END 2024-03-09 00:36 | disposition home or self-care (01) ==
LOC: M ED 18:09
DX: M62.830 Muscle spasm of back (principal); E11.9 Type 2 diabetes mellitus without complications; K21.9 Gastro-esophageal reflux disease without esophagitis; Z79.82 Long term (current) use of aspirin; Z79.4 Long term (current) use of insulin; Z79.899 Other long term (current) drug therapy

== ENCOUNTER 2024-09-05 19:44 | Inpatient (IN) | payer MEDICARE ==
[2024-09-04] MEDS: TAMSULOSIN 0.4 MG CAP PO SCH (23:49)
[~2024-09-05] VITALS: Ht 182.9 cm; Wt 143.3 kg
[~2024-09-05 19:44] MED LIST changes: -FLOM0.4C39 PO; +LIDO1ADH93 TD; +METH-1164 PO; +TAMS-18 PO
[2024-09-05] MEDS ORDERED: MORPHINE 2 MG/ML 1 ML VIAL IV PRN (20:15)
[2024-09-05 20:18] LABS: BASO # 0.1 10^3/uL (0.0-0.2); BASO % 0.6 % (0.0-1.0); EOS # 0.2 10^3/uL (0.0-0.5); EOS % 1.7 % (0.0-3.0); LYMPH # 0.9 10^3/uL (1.5-5.0); LYMPH % 7.8 % (24.0-44.0); MONO # 0.6 10^3/uL (0.0-0.8); MONO % 4.8 % (2.0-8.0); NEUTROPHILS # 10.2 10^3/uL (1.5-8.5); NEUTROPHILS % 84.7 % (36.0-66.0); PLATELET COUNT, AUTOMATED 198 10^3/uL (150-450)
[2024-09-05] MEDS: NS (Normal Saline) 0.9% 1,000 ML IV ONE (20:33)
[2024-09-05] MEDS: MORPHINE 4 MG/ML 1 ML VIAL IV PRN (20:34)
[2024-09-05] MEDS: ONDANSETRON 4MG 2ML VIAL IV ONE (20:34)
[2024-09-05 20:51] LABS: ALT/SGPT 17.0 U/L (7.0-40); AST/SGOT 23.0 U/L (<34); CALCIUM LEVEL 9.0 MG/DL (8.3-10.6); CARBON DIOXIDE LEVEL 29.0 MMOL/L (20-31); CHLORIDE LEVEL 98.0 MMOL/L (98-107); CREATININE FOR GFR 1.53 MG/DL (0.70-1.30); GLOMERULAR FILTRATION RATE 48.9 (>49); POTASSIUM SERUM 4.1 MMOL/L (3.5-5.1); SODIUM LEVEL 140.0 MMOL/L (136-145)
[2024-09-05] MEDS ORDERED: ISOVUE-370 76% 100 ML VIAL As Ordered ONE (21:03)
[2024-09-05 21:26] LABS: VENOUS BASE EXCESS -1.3 (-2.0-2.0); VENOUS HCO3 23.6 MMOL/L (23.0-27.0); VENOUS O2 SATURATION 93.7 % (60.0-80.0); VENOUS PARTIAL PRESSURE CO2 40.4 mmHg (38.0-50.0); VENOUS PARTIAL PRESSURE O2 73.8 mmHg (30.0-50.0); VENOUS PH 7.385 UNITS (7.330-7.430); VENOUS STANDARD HCO3 23.3 MMOL/L; VENOUS TOTAL CO2 24.9 MMOL/L (24.0-28.0)
[2024-09-05 21:49] LABS: ACETONE/KETONE 0.23 MMOL/L (0.02-0.27)
[2024-09-05] MEDS ORDERED: CHOL4POW26 PO (22:34)
[2024-09-05] MEDS ORDERED: FAMO1TAB11 PO (22:34)
[2024-09-05] MEDS ORDERED: GLIP-320 PO (22:38)
[2024-09-05] MEDS ORDERED: ACET-897 PO (22:38)
[2024-09-05] MEDS ORDERED: SPIR100T3 PO (22:38)
[2024-09-05] MEDS ORDERED: NOVOINJ3 SC (22:38)
[2024-09-05] MEDS ORDERED: ATOR1TAB21 PO (22:42)
[2024-09-05] MEDS ORDERED: HOME MED LIST COMPLETE! XX SCH (22:45)
[2024-09-05] MEDS: NS (Normal Saline) 0.9% 1,000 ML IV SCH (22:55)
[2024-09-05] MEDS ORDERED: GLUCAGON INJ 1 MG VIAL SC PRN (23:00)
[2024-09-05] MEDS ORDERED: GLUCOSE 4 GM CHEW PO PRN (23:00)
[2024-09-05] MEDS ORDERED: DEXTROSE 50% 50 ML SYRINGE IV PRN (23:00)
[2024-09-05 23:30] VITALS: BP 136/83; TEMP 97.7; O2SAT 96
[2024-09-05] MEDS: ASPIRIN 81 MG CHEWABLE TABLET PO SCH (23:50)
[2024-09-06] MEDS: INSULIN LISPRO (NovoLOG) PER UNIT SC SCH (01:00)
[2024-09-06] MEDS: MORPHINE 2 MG/ML 1 ML VIAL IV PRN (04:10)
[2024-09-06 04:18] VITALS: BP 148/64; TEMP 97.3; O2SAT 97
[2024-09-06] MEDS: ONDANSETRON 4MG 2ML VIAL IV PRN (04:32)
[2024-09-06] MEDS: HEPARIN SOD 5000 UNITS/ML 1 ML VIAL/SYRINGE SC SCH (06:26)
[2024-09-06 07:01] LABS: PLATELET COUNT, AUTOMATED 186 10^3/uL (150-450)
[2024-09-06 07:38] LABS: ALT/SGPT 14.0 U/L (7.0-40); AST/SGOT 19.0 U/L (<34); CALCIUM LEVEL 8.5 MG/DL (8.3-10.6); CARBON DIOXIDE LEVEL 26.0 MMOL/L (20-31); CHLORIDE LEVEL 102.0 MMOL/L (98-107); CREATININE FOR GFR 1.36 MG/DL (0.70-1.30); GLOMERULAR FILTRATION RATE 56.3 (>49); POTASSIUM SERUM 4.1 MMOL/L (3.5-5.1); SODIUM LEVEL 141.0 MMOL/L (136-145)
[2024-09-06] MEDS: FUROSEMIDE 40 MG TAB PO SCH (09:00)
[2024-09-06] MEDS: PARoxetine 20MG TABLET PO SCH (09:00)
[2024-09-06] MEDS: SPIRONOLACTONE 50 MG TAB PO SCH (09:00)
[2024-09-06] MEDS: ATORVASTATIN 20 MG TAB PO SCH (09:00)
[2024-09-06] MEDS: FAMOTIDINE 20 MG TAB PO SCH (09:10)
[2024-09-06 11:30] VITALS: BP 140/64; TEMP 97.7; O2SAT 97
[2024-09-06] MEDS: LR 1,000 ML IV SCH (15:20)
[2024-09-06 19:39] VITALS: BP 148/67; TEMP 97.5; O2SAT 97
[2024-09-07] MEDS: diphenhydrAMINE 50 MG/ML VIAL IV PRN (03:58)
[2024-09-07] MEDS: ACETAMINOPHEN *IV* 1,000 MG in IV 1 EA IV ONE (03:59)
[2024-09-07 04:00] VITALS: BP 150/67; TEMP 97.5; O2SAT 98
[2024-09-07 12:00] VITALS: BP 145/65; TEMP 97.6; O2SAT 97
[2024-09-07 20:14] VITALS: BP 144/62; TEMP 97.7; O2SAT 94
[2024-09-08 06:04] VITALS: BP 151/68; TEMP 97.2; O2SAT 97
[2024-09-08 11:59] VITALS: TEMP 97.5; O2SAT 96
[2024-09-08 12:05] VITALS: BP 148/68; TEMP 97.5; O2SAT 96
[2024-09-08 15:45] VITALS: BP 148/58
[2024-09-08 20:00] VITALS: BP 147/58; TEMP 97.7; O2SAT 95
[2024-09-09 04:00] VITALS: BP 155/66; TEMP 97.2; O2SAT 98
[2024-09-09 12:00] VITALS: BP 140/65; TEMP 97.5; O2SAT 95
[2024-09-09 20:00] VITALS: BP 107/32; TEMP 97.7; O2SAT 97
[2024-09-09 21:29] LABS: BASO # 0.1 10^3/uL (0.0-0.2); BASO % 0.5 % (0.0-1.0); EOS # 0.3 10^3/uL (0.0-0.5); EOS % 2.5 % (0.0-3.0); LYMPH # 1.4 10^3/uL (1.5-5.0); LYMPH % 14.0 % (24.0-44.0); MONO # 0.7 10^3/uL (0.0-0.8); MONO % 7.4 % (2.0-8.0); NEUTROPHILS # 7.5 10^3/uL (1.5-8.5); NEUTROPHILS % 75.0 % (36.0-66.0); PLATELET COUNT, AUTOMATED 193 10^3/uL (150-450)
[2024-09-09 22:02] LABS: ALT/SGPT 13.0 U/L (7.0-40); AST/SGOT 23.0 U/L (<34); CALCIUM LEVEL 8.4 MG/DL (8.3-10.6); CARBON DIOXIDE LEVEL 26.0 MMOL/L (20-31); CHLORIDE LEVEL 102.0 MMOL/L (98-107); CREATININE FOR GFR 1.14 MG/DL (0.70-1.30); GLOMERULAR FILTRATION RATE 69.6 (>49); POTASSIUM SERUM 3.9 MMOL/L (3.5-5.1); SODIUM LEVEL 137.0 MMOL/L (136-145)
[2024-09-10 04:00] VITALS: BP 154/73; TEMP 96.8; O2SAT 100
[2024-09-10 07:44] LABS: BASO # 0.1 10^3/uL (0.0-0.2); BASO % 0.7 % (0.0-1.0); EOS # 0.3 10^3/uL (0.0-0.5); EOS % 3.6 % (0.0-3.0); LYMPH # 0.9 10^3/uL (1.5-5.0); LYMPH % 13.5 % (24.0-44.0); MONO # 0.5 10^3/uL (0.0-0.8); MONO % 6.7 % (2.0-8.0); NEUTROPHILS # 5.2 10^3/uL (1.5-8.5); NEUTROPHILS % 74.9 % (36.0-66.0); PLATELET COUNT, AUTOMATED 159 10^3/uL (150-450)
[2024-09-10] MEDS: INSULIN LISPRO (NovoLOG) PER UNIT SC SCH (07:45)
[2024-09-10 08:04] LABS: CALCIUM LEVEL 8.9 MG/DL (8.3-10.6); CARBON DIOXIDE LEVEL 26.0 MMOL/L (20-31); CHLORIDE LEVEL 102.0 MMOL/L (98-107); CREATININE FOR GFR 1.15 MG/DL (0.70-1.30); GLOMERULAR FILTRATION RATE 68.9 (>49); POTASSIUM SERUM 3.9 MMOL/L (3.5-5.1); SODIUM LEVEL 141.0 MMOL/L (136-145)
[2024-09-10] MEDS ORDERED: META0.52 PO (08:10)
[2024-09-10] MEDS ORDERED: STOO100C30 PO (08:10)
[2024-09-10 08:23] VITALS: BP 119/64
[2024-09-10] MEDS ORDERED: INSULIN LISPRO (NovoLOG) PER UNIT SC SCH (21:00)
== END 2024-09-10 10:00 | disposition home or self-care (01) | DRG 389 ==
LOC: M ED 19:44 → M ED INP 22:33 → M MS5PR 23:28
PROVIDERS: ADMIT Family Medicine; ATTEND Internal Medicine
DX: K56.51 Intestinal adhesions [bands], with partial obstruction (principal); I50.32 Chronic diastolic (congestive) heart failure; G47.33 Obstructive sleep apnea (adult) (pediatric); M48.00 Spinal stenosis, site unspecified; N40.0 Benign prostatic hyperplasia without lower urinary tract symptoms; E78.5 Hyperlipidemia, unspecified; I48.0 Paroxysmal atrial fibrillation; J44.9 Chronic obstructive pulmonary disease, unspecified; I11.0 Hypertensive heart disease with heart failure; E11.42 Type 2 diabetes mellitus with diabetic polyneuropathy; M10.9 Gout, unspecified; E66.9 Obesity, unspecified; F41.9 Anxiety disorder, unspecified; Z87.891 Personal history of nicotine dependence; Z79.899 Other long term (current) drug therapy; Z79.82 Long term (current) use of aspirin; Z88.0 Allergy status to penicillin

== ENCOUNTER → 2024-09-26 | Outpatient (CLI) | payer MEDICARE ==
[~2024-09-26] MED LIST changes: +ACET-897 PO; +ATOR1TAB21 PO; +BACI50OI TOP; +CEPH500C PO; +CHOL4POW26 PO; +DOCU100C16 PO; +DOXY100T PO; +FAMO1TAB11 PO; +GLIP-320 PO; +META0.52 PO; +METACAP2 PO; +NOVOINJ3 SC; +SPIR100T3 PO; +STOO100C30 PO
== END ==
LOC: M CLY 14:21
PROVIDERS: ATTEND Physician Assistant
DX: L03.90 Cellulitis, unspecified (principal)

== ENCOUNTER 2024-09-29 11:07 | Inpatient (IN) | payer MEDICARE ==
[~2024-09-29] VITALS: Ht 182.9 cm; Wt 133.6 kg
[~2024-09-29 11:07] MED LIST changes: -BACI50OI TOP; -CEPH500C PO; -DOCU100C16 PO; -DOXY100T PO; -METACAP2 PO
[2024-09-29 12:10] LABS: BASO # 0.1 10^3/uL (0.0-0.2); BASO % 0.5 % (0.0-1.0); EOS # 0.2 10^3/uL (0.0-0.5); EOS % 1.9 % (0.0-3.0); LYMPH # 1.0 10^3/uL (1.5-5.0); LYMPH % 8.9 % (24.0-44.0); MONO # 0.6 10^3/uL (0.0-0.8); MONO % 5.4 % (2.0-8.0); NEUTROPHILS # 9.3 10^3/uL (1.5-8.5); NEUTROPHILS % 82.4 % (36.0-66.0); PLATELET COUNT, AUTOMATED 254 10^3/uL (150-450)
[2024-09-29 12:15] LABS: ERYTHROCYTE SEDIMENTATION RATE 80 mm/hr (0-20)
[2024-09-29 12:22] LABS: INR 1.01
[2024-09-29 12:43] LABS: ALT/SGPT 19.0 U/L (7.0-40); AST/SGOT 22.0 U/L (<34); C REACTIVE PROTEIN QUANTITATIV 4.34 MG/DL (<1.0); CALCIUM LEVEL 9.1 MG/DL (8.3-10.6); CARBON DIOXIDE LEVEL 25.0 MMOL/L (20-31); CHLORIDE LEVEL 96.0 MMOL/L (98-107); CREATININE FOR GFR 1.48 MG/DL (0.70-1.30); GLOMERULAR FILTRATION RATE 50.9 (>49); POTASSIUM SERUM 4.5 MMOL/L (3.5-5.1); SODIUM LEVEL 135.0 MMOL/L (136-145)
[2024-09-29] MEDS: LIDOCAINE 1% MDV 20 ML VIAL SC ONE (14:00)
[2024-09-29] MEDS ORDERED: VANCOMYCIN HCL 1,000 MG in IV FLUID PLACE HOLDER 1 EA IV SCH (14:25)
[2024-09-29] MEDS ORDERED: LR 1,000 ML IV SCH (15:00)
[2024-09-29] MEDS: VANCOMYCIN HCL 1,500 MG, VIAL MATE ADAPTER 1 EACH in NS 500 ML IV ONE (15:06)
[2024-09-29] MEDS ORDERED: ACETAMINOPHEN 325 MG TAB PO PRN (15:30)
[2024-09-29] MEDS ORDERED: ONDANSETRON 4MG 2ML VIAL IV PRN (15:30)
[2024-09-29 15:55] LABS: ESTIMATED AVERAGE GLUCOSE 171.0 MG/DL (60-110)
[2024-09-29] MEDS: cefTRIAXone SOD 1 GM in DEXTROSE 5% (D5W) ADV/MINI-BAG 50 ML IV SCH (17:09)
[2024-09-29] MEDS ORDERED: CEPH500C PO (17:20)
[2024-09-29] MEDS ORDERED: HOME MED LIST COMPLETE! XX SCH (17:25)
[2024-09-29] MEDS ORDERED: DOCU100C16 PO (17:28)
[2024-09-29] MEDS ORDERED: METACAP2 PO (17:28)
[2024-09-29] MEDS: LR 1,000 ML IV SCH (17:37)
[2024-09-29 20:30] VITALS: BP 169/80; TEMP 97; O2SAT 96
[2024-09-29] MEDS: DOCUSATE SODIUM 100 MG CAPSULE PO SCH (20:58)
[2024-09-29] MEDS: FAMOTIDINE 20 MG TAB PO SCH (20:58)
[2024-09-29] MEDS: VANCOMYCIN HCL 750 MG, VIAL MATE ADAPTER 1 EACH in NS 250 ML IV SCH (20:58)
[2024-09-29] MEDS: TAMSULOSIN 0.4 MG CAP PO SCH (20:58)
[2024-09-29] MEDS: METAMUCIL PACKET PO SCH (20:58)
[2024-09-29] MEDS: ASPIRIN 81 MG CHEWABLE TABLET PO SCH (20:58)
[2024-09-29] MEDS: LanTUS (INSULIN GLARGINE INJ) 1 UNITS/0.01 ML SC SCH (20:59)
[2024-09-30 03:55] VITALS: BP 135/61; TEMP 96.1; O2SAT 98
[2024-09-30 07:49] LABS: BASO # 0.1 10^3/uL (0.0-0.2); BASO % 0.6 % (0.0-1.0); EOS # 0.2 10^3/uL (0.0-0.5); EOS % 2.7 % (0.0-3.0); LYMPH # 1.1 10^3/uL (1.5-5.0); LYMPH % 12.1 % (24.0-44.0); MONO # 0.6 10^3/uL (0.0-0.8); MONO % 6.2 % (2.0-8.0); NEUTROPHILS # 7.0 10^3/uL (1.5-8.5); NEUTROPHILS % 77.6 % (36.0-66.0); PLATELET COUNT, AUTOMATED 215 10^3/uL (150-450)
[2024-09-30 08:24] LABS: CALCIUM LEVEL 8.9 MG/DL (8.3-10.6); CARBON DIOXIDE LEVEL 25.0 MMOL/L (20-31); CHLORIDE LEVEL 101.0 MMOL/L (98-107); CHOLESTEROL LEVEL 122.0 MG/DL (<200); CHOLESTEROL RISK RATIO 3.28 (<5); CREATININE FOR GFR 1.27 MG/DL (0.70-1.30); GLOMERULAR FILTRATION RATE 61.2 (>49); LDL CHOLESTEROL 55.7 MG/DL (<100); NON-HDL-C 84.9 MG/DL; POTASSIUM SERUM 4.5 MMOL/L (3.5-5.1); SODIUM LEVEL 140.0 MMOL/L (136-145); TRIGLYCERIDES LEVEL 146.0 MG/DL (<150)
[2024-09-30] MEDS: ATORVASTATIN 20 MG TAB PO SCH (09:42)
[2024-09-30] MEDS: PARoxetine 20MG TABLET PO SCH (09:42)
[2024-09-30] MEDS: CALCITRIOL 0.25 MCG CAP (S0169) PO SCH (09:42)
[2024-09-30 12:00] VITALS: BP 158/67; TEMP 97.4; O2SAT 97
[2024-09-30 20:28] VITALS: BP 137/64; TEMP 96.8; O2SAT 98
[2024-10-01 04:36] VITALS: BP 133/63; TEMP 95.4; O2SAT 97
[2024-10-01 08:14] LABS: BASO # 0.1 10^3/uL (0.0-0.2); BASO % 0.8 % (0.0-1.0); EOS # 0.3 10^3/uL (0.0-0.5); EOS % 3.5 % (0.0-3.0); LYMPH # 1.2 10^3/uL (1.5-5.0); LYMPH % 15.9 % (24.0-44.0); MONO # 0.6 10^3/uL (0.0-0.8); MONO % 7.3 % (2.0-8.0); NEUTROPHILS # 5.5 10^3/uL (1.5-8.5); NEUTROPHILS % 71.5 % (36.0-66.0); PLATELET COUNT, AUTOMATED 202 10^3/uL (150-450)
[2024-10-01 08:40] LABS: C REACTIVE PROTEIN QUANTITATIV 1.51 MG/DL (<1.0); CALCIUM LEVEL 9.1 MG/DL (8.3-10.6); CARBON DIOXIDE LEVEL 25.0 MMOL/L (20-31); CHLORIDE LEVEL 102.0 MMOL/L (98-107); CREATININE FOR GFR 1.15 MG/DL (0.70-1.30); GLOMERULAR FILTRATION RATE 68.9 (>49); POTASSIUM SERUM 4.8 MMOL/L (3.5-5.1); SODIUM LEVEL 140.0 MMOL/L (136-145)
[2024-10-01 08:42] LABS: ERYTHROCYTE SEDIMENTATION RATE 71 mm/hr (0-20)
[2024-10-01] MEDS: SPIRONOLACTONE 50 MG TAB PO SCH (09:12)
[2024-10-01] MEDS: VANCOMYCIN HCL 1,000 MG, VIAL MATE ADAPTER 1 EACH in NS 250 ML IV SCH (09:23)
[2024-10-01 11:50] VITALS: BP 116/79; TEMP 97.1; O2SAT 96
[2024-10-01 20:34] VITALS: BP 143/64; TEMP 97.1; O2SAT 99
[2024-10-02 06:34] VITALS: BP 142/61; TEMP 97.3; O2SAT 100
[2024-10-02 08:08] LABS: BASO # 0.1 10^3/uL (0.0-0.2); BASO % 0.9 % (0.0-1.0); EOS # 0.3 10^3/uL (0.0-0.5); EOS % 3.7 % (0.0-3.0); LYMPH # 1.2 10^3/uL (1.5-5.0); LYMPH % 14.7 % (24.0-44.0); MONO # 0.5 10^3/uL (0.0-0.8); MONO % 6.5 % (2.0-8.0); NEUTROPHILS # 6.0 10^3/uL (1.5-8.5); NEUTROPHILS % 73.2 % (36.0-66.0); PLATELET COUNT, AUTOMATED 213 10^3/uL (150-450)
[2024-10-02 08:33] LABS: CALCIUM LEVEL 9.2 MG/DL (8.3-10.6); CARBON DIOXIDE LEVEL 26.0 MMOL/L (20-31); CHLORIDE LEVEL 104.0 MMOL/L (98-107); CREATININE FOR GFR 1.14 MG/DL (0.70-1.30); GLOMERULAR FILTRATION RATE 69.6 (>49); POTASSIUM SERUM 4.4 MMOL/L (3.5-5.1); SODIUM LEVEL 142.0 MMOL/L (136-145)
[2024-10-02] MEDS: DOXYCYCLINE HYCLATE 100 MG TABLET PO SCH (08:50)
[2024-10-02] MEDS ORDERED: DOXY100T PO (10:56)
[2024-10-02] MEDS ORDERED: BACI50OI TOP (10:56)
== END 2024-10-02 12:29 | disposition home or self-care (01) | DRG 603 ==
LOC: M ED 11:07 → EEVIPCON 14:22 → M ED INP 14:22 → M MS4PR 20:00
PROVIDERS: ADMIT General Practice; ATTEND General Practice
DX: L02.412 Cutaneous abscess of left axilla (principal); I50.32 Chronic diastolic (congestive) heart failure; N17.9 Acute kidney failure, unspecified; E87.1 Hypo-osmolality and hyponatremia; Z68.41 Body mass index [BMI] 40.0-44.9, adult; I11.0 Hypertensive heart disease with heart failure; G47.33 Obstructive sleep apnea (adult) (pediatric); J44.9 Chronic obstructive pulmonary disease, unspecified; E11.40 Type 2 diabetes mellitus with diabetic neuropathy, unspecified; F41.9 Anxiety disorder, unspecified; E66.01 Morbid (severe) obesity due to excess calories; I48.0 Paroxysmal atrial fibrillation; Z88.0 Allergy status to penicillin; Z87.891 Personal history of nicotine dependence; N40.0 Benign prostatic hyperplasia without lower urinary tract symptoms; Z79.899 Other long term (current) drug therapy; Z79.82 Long term (current) use of aspirin; Z79.4 Long term (current) use of insulin; L03.114 Cellulitis of left upper limb